=== PATIENT | female | born 2000 | race Caucasian/White ===

== ENCOUNTER 2023-06-06 10:29 | Emergency (ER) | payer OTHER, SELFPAY ==
[2023-06-06 10:36] VITALS: BP 140/93; PULSE 71; RESP 20; TEMP 36.9; O2SAT 98; BMI 32.6
--- NOTE | 2023-06-06 10:41 | NUTR.NU ---
Pain and facial swelling to left side of face. Pt states known broken molar to left bottom jaw for 7 months. Pt is currently on Augmentin prescribed by Dr. Muller, but swelling has gotten worse over past 3 days. Pt. states she is having difficulty finding a dentist that accepts her insurance. Pt was given list of Dentists in area at this time.
--- NOTE | 2023-06-06 10:47 | ED.DENTAL1 ---
HPI - Dental/Oral General Chief complaint: Dental/Oral Stated complaint: SWELLING TO FACE Time Seen by Provider: 06/06/23 10:41 Source: patient Mode of arrival: walk-in Limitations: no limitations History of Present Illness HPI Narrative: 23-year-old female presents for dental pain and swelling to her left lower jaw. It began a few days ago and she was started on Augmentin yesterday. No difficulty breathing or swallowing. She doesn't have a dentist. The pain is moderate and continuous. Related Data Home Medications Medication Instructions Recorded Confirmed amoxicillin 875 mg-potassium 1 tab PO BID 06/06/23 06/06/23 clavulanate 125 mg tablet Previous Rx's Medication Instructions Recorded clindamycin HCl 300 mg capsule 300 mg PO Q6H 10 days #40 caps 06/06/23 Allergies Allergy/AdvReac Type Severity Reaction Status Date / Time No Known Drug Allergies Allergy Verified 06/06/23 10:34 Review of Systems ROS Narrative A ten point review of systems is negative except as noted above. PFSH PFSH Social History Smoking status: Light tobacco smoker Exam Narrative Exam Narrative: Nurses note and vital signs reviewed and patient is not hypoxic. General: The patient appears well and in no apparent distress. Patient is resting comfortably on cart. Skin: Warm, dry, no pallor noted. There is no rash noted. Head: Normocephalic, atraumatic Eye: Normal conjunctiva, no drainage Ears, Nose, Mouth, and Throat: oral mucosa is moist. Nares patent. swelling is noted to the left jaw. No submental swelling. No swelling to the floor of her mouth. Dental caries is noted in the left lower dentition. No bleeding or pus present. She is handling her oral secretions well. Cardiovascular: Regular Rate and Rhythm Respiratory: Patient is in no distress, no accessory muscle use, lungs are clear to auscultation, no wheezing, rales or rhonchi Back: non-tender GI: Normal bowel sounds, no tenderness to palpation, no masses appreciated. No rebound, guarding, or rigidity noted. Musculoskeletal: The patient has no evidence of calf tenderness, no pitting edema, symmetrical pulses noted bilaterally Neurological: A&O x4, normal speech Psychiatric: Cooperative Constitutional Vital Signs, click to edit/add: Last Vital Signs Temp 98.5 F 06/06/23 10:36 Pulse 71 06/06/23 10:36 Resp 20 06/06/23 10:36 BP 140/93 H 06/06/23 10:36 Pulse Ox 98 06/06/23 10:36 Course Vital Signs Vital signs: Vital Signs Temperature 98.5 F 06/06/23 10:36 Pulse Rate 71 06/06/23 10:36 Respiratory Rate 20 06/06/23 10:36 Blood Pressure 140/93 H 06/06/23 10:36 Pulse Oximetry 98 06/06/23 10:36 Temperature 98.5 F 06/06/23 10:36 Pulse Rate 71 06/06/23 10:36 Respiratory Rate 20 06/06/23 10:36 Blood Pressure 140/93 H 06/06/23 10:36 Pulse Oximetry 98 06/06/23 10:36 MDM - Dental/Oral MDM Narrative Medical decision making narrative: she was given IM Ancef and prescribed clindamycin and was given a dental list. I've no clinical suspicion of Og angina. Treatment diagnosis and follow-up were discussed with the patient. Differential Diagnosis Differential diagnosis: Likely gingival abscess, dental caries, toothache and dental abscess Discharge Plan Discharge Chief Complaint: Dental/Oral Clinical Impression: Dental abscess Patient Disposition: Home, Self-Care Time of Disposition Decision: 10:46 Condition: Good Mode of Transportation: Private Vehicle Prescriptions / Home Meds: New clindamycin HCl 300 mg capsule 300 mg PO Q6H 10 Days Qty: 40 0RF No Action amoxicillin-pot clavulanate 875-125 mg tablet 1 tab PO BID Instructions: Dental Abscess (ED) Additional Instructions: follow up with dentistry. Discontinue Augmentin and start clindamycin today. Stand Alone Forms: Portal Instructions Referrals: Tarun Muller MD [Primary Care Provider] - 1 week
[2023-06-06] MEDS: CEFAZOLIN SODIUM 1,000 MG, WATER FOR INJECTION,STERILE 2.5 ML IM (10:57)
== END 2023-06-06 11:01 | disposition home or self-care (01) ==
PROVIDERS: Emergency Provider Emergency Medicine; PCP Family Medicine
DX: K04.7 Periapical abscess without sinus (principal); F17.210 Nicotine dependence, cigarettes, uncomplicated
CPT/HCPCS: 96372; 99284

== ENCOUNTER 2024-09-02 16:31 | Emergency (ER) | payer OTHER, SELFPAY ==
[2024-09-02 16:37] VITALS: BP 127/77; PULSE 79; TEMP 36.8; O2SAT 96; BMI 25.6
--- NOTE | 2024-09-02 16:53 | XR_ITS ---
The [address] [address] Patient Name: ROBBIE SNOW MRN: [id number] date: 2000 Sex: F Assigned Patient Location: ER Current Patient Location: ER Accession/Order Number: [id number] Exam Date: 09/02/2024 16:59 Report Date: 09/02/2024 17:15 At the request of: TAMICA PERES Procedure: XR chest 2V EXAM: XR chest 2V HISTORY: cough COMPARISON: None. TECHNIQUE: PA and lateral views of the chest FINDINGS: There is no focal airspace consolidation. The cardiomediastinal silhouette is not enlarged. No evidence of pleural effusion or pneumothorax are identified. No acute osseous abnormality. XR/XR chest 2V IMPRESSION: No acute cardiopulmonary process. Recommend follow up imaging if symptoms worsen or persist. Electronically authenticated by: ROBINSON UNLU Date: 09/02/2024 17:15
--- NOTE | 2024-09-02 17:01 | ED.GENADUL1 ---
HPI HPI - General Adult General Chief complaint: Nausea/Vomiting/Diarrhea Stated complaint: FLU LIKE SYMPTOMS Time Seen by Provider: 09/02/24 16:38 Source: patient Mode of arrival: walk-in Limitations: no limitations History of Present Illness HPI narrative: Patient is a 24-year-old female who presents to the emergency department for the evaluation of flulike illness that began yesterday. She reports cough, congestion, vomiting, body aches and chills. She has had no objective fevers. She has no concern for . Her son is also being evaluated for the same. She took DayQuil at 7 AM. She states today she feels more winded and short of breath. She has had no hemoptysis. Related Data Home Medications ?Medication ?Instructions ?Recorded ?Confirmed amoxicillin 875 mg-potassium 1 tab PO BID 06/06/23 06/06/23 clavulanate 125 mg tablet Previous Rx's ?Medication ?Instructions ?Recorded clindamycin HCl 300 mg capsule 300 mg PO Q6H 10 days #40 caps 06/06/23 ggasmdzmrvnsqse-zkzmhwetrkxbqhq-ZT 10 ml PO Q6H PRN cold symptoms 09/02/24 2 mg-30 mg-10 mg/5 mL oral syrup #200 mL (Bromfed DM) ondansetron 4 mg disintegrating 4 mg PO Q6H PRN nausea and 09/02/24 tablet vomiting #12 tabs Allergies Allergy/AdvReac Type Severity Reaction Status Date / Time No Known Drug Allergies Allergy Verified 09/02/24 17:42 Opioid HPI Opioid Management Most Recent Opioid Data: No Data to Display Review of Systems ROS Constitutional Reports: chills; Denies: fever Ears, nose, mouth, and throat Reports: nasal congestion Cardiovascular Denies: chest pain Respiratory Reports: shortness of breath and cough; Denies: coughing up blood Gastrointestinal Reports: nausea, vomiting and diarrhea Integumentary/Breast Denies: rash Neurological Denies: headache Hematologic/Lymphatic Denies: easy bruising or easy bleeding PFSH PFS Social History Smoking status: Light tobacco smoker Little interest or pleasure in doing things: not at all Feeling down, depressed, or hopeless: not at all Exam Narrative Exam Narrative: Gen.: Awake, alert, in no distress Head: Normocephalic, atraumatic ENT: Moist mucous membranes, bilateral TMs clear Respiratory: No respiratory distress, lungs clear bilaterally Cardio: Regular rate and rhythm Gastrointestinal: Abdomen is soft, nondistended and nontender to palpation Extremities: Moves extremities equally Psych: Normal mood and affect Neuro: No focal neuro deficit Skin: Warm, dry, intact Constitutional Vital Signs, click to edit/add: Last Vital Signs Temp 98.3 F 09/02/24 16:37 Pulse 79 09/02/24 16:37 Resp 16 09/02/24 16:37 BP 127/77 09/02/24 16:37 Pulse Ox 96 09/02/24 16:37 O2 Del Method Room Air 09/02/24 16:37 Course Vital Signs Vital signs: Vital Signs Temperature 98.3 F 09/02/24 16:37 Pulse Rate 79 09/02/24 16:37 Respiratory Rate 16 09/02/24 16:37 Blood Pressure 127/77 09/02/24 16:37 Pulse Oximetry 96 09/02/24 16:37 Oxygen Delivery Method Room Air 09/02/24 16:37 Temperature 98.3 F 09/02/24 16:37 Pulse Rate 79 09/02/24 16:37 Respiratory Rate 16 09/02/24 16:37 Blood Pressure 127/77 09/02/24 16:37 Pulse Oximetry 96 09/02/24 16:37 Oxygen Delivery Method Room Air 09/02/24 16:37 Medical Decision Making MDM Narrative Medical decision making narrative: Patient treated with Zofran in the ER, no further episodes of emesis. She tolerated a popsicle. Vital signs are unremarkable. Two-view chest x-ray is negative and respiratory swabs are also negative. She is given education and reassurance to push fluids for home. Zofran given for nausea and Bromfed-DM given for cough and congestion. Work note provided. Follow-up with PCP and return to the ER if symptoms change or worsen SUPERVISED APC VISIT, PHYSICIAN ATTESTATION: Based on the medical record the care appears appropriate. ? Medical Records Medical records reviewed: Yes I reviewed the patient's medical records Lab Data Lab results reviewed: Yes I reviewed the patient's lab results Labs: Lab Results 09/02/24 Range/Units 16:44 Influenza Type A Ag Negative Influenza Type B Ag Negative SARS-CoV-2 Ag (CV2AG) Negative (NEGATIVE) Imaging Data Chest x-ray: Attestation: I have reviewed the pertinent imaging results. Radiologist's impression: ITS Impressions Chest X-Ray 09/02/24 16:53 IMPRESSION: No acute cardiopulmonary process. Recommend follow up imaging if symptoms worsen or persist. Electronically authenticated by: ROBINSON VASQUEZ Date: 09/02/2024 17:15 Discharge Plan Discharge Chief Complaint: Nausea/Vomiting/Diarrhea Clinical Impression: Flu-like symptoms, Vomiting and diarrhea Patient Disposition: Home, Self-Care Time of Disposition Decision: 17:44 Condition: Good Prescriptions / Home Meds: New gajbqhynwhqmodv-obysjuiwg-LW [Bromfed DM] 2-30-10 mg/5 mL syrup 10 ml PO Q6H PRN (Reason: cold symptoms) Qty: 200 0RF ondansetron 4 mg tablet,disintegrating 4 mg PO Q6H PRN (Reason: nausea and vomiting) Qty: 12 0RF No Action amoxicillin-pot clavulanate 875-125 mg tablet 1 tab PO BID clindamycin HCl 300 mg capsule 300 mg PO Q6H 10 Days Qty: 40 0RF Print Language: Latvian Instructions: Acute Nausea and Vomiting (ED), Viral Syndrome (ED) Referrals: Tarun Muller MD [Primary Care Provider] - 1 week
[2024-09-02] MEDS: ONDANSETRON 4 MG RAPDIS TABLET SL (17:06)
--- OUTSIDE RECORDS SUMMARY | 2024-09-02 17:07 | XMS_ITS | CCD ---
Author Organization [facility] Care Team Providers Care Vanstone Machine Operator Name Role Phone MD Nasreen Muller Primary Care Provider [phone] DO Arslan Mckee Emergency Provider Nasreen Muller Primary Care Unavailable Caryn Causey Attending Unavailable Caryn Causey Admitting Unavailable Nasreen Muller Primary Care Unavailable Arslan Mckee Admitting Unavailable Arslan Mckee Attending Unavailable JUSTIN Mckenzie, DR DOWNEY Primary Care Unavailable JAZZMINE MCMANUS Consulting Unavailable JAZZMINE MCMANUS Admitting Unavailable JAZZMINE MCMANUS Attending Unavailable JUSTIN Mckenzie, DR DOWNEY Primary Care Unavailable MELANIE Mckenzie, CARYN Admitting Unavailable CARYN BENAVIDES Attending Unavailable JOSE L, DR NIKI Martinez Consulting Unavailable MELANIE Mckenzie, CARYN Consulting Unavailable JUSTIN Mckenzie, DR DOWNEY Primary Care Unavailable KERRY, DR SUE Cuevas Admitting Unavailbhavya PAYNE, DR SUE Cuevas Attending Unavailbhavya PAYNE, DR SUE Cuevas Consulting UnavailEsperanza Mckenzie, DR DOWNEY Primary Care Unavailable ISMAEL BUITRAGO Admitting Unavailable ISMAEL BUITRAGO Attending Unavailable ISMAEL BUITRAGO Consulting Unavailable JUSTIN Mckenzie, DR DOWNEY Primary Care Unavailable MELANIE Mckenzie, CARYN Admitting Unavailable MELANIE ., CARYN Attending Unavailable ЕКАТЕРИНА BURGOS Consulting Unavailable MELANIE ., CARYN Admitting Unavailable MELANIE Mckenzie, CARYN Attending Unavailable JUSTIN Mckenzie, DR DOWNEY Primary Care Unavailable MELANIE Mckenzie, CARYN Consulting Unavailable JUSTIN Mckenzie, DR DOWNEY Primary Care Unavailable KINGSTON ., DR NEWBERRY Admitting Unavailable KINGSTON ., DR NEWBERRY Attending Unavailable KINGSTON ., DR NEWBERRY Consulting Unavailable ALKA FOSTER Consulting Unavailable Nasreen Muller MD Primary Care Provider [phone] NASREEN MULLER M Referring Unavailable NASREEN MULLER M Primary Care Unavailable CHING DAMON Referring Unavailable NASREEN MULLER M Primary Care Unavailable REINA WISE Referring Unavailable ASPEN MULLERLAS M Primary Care Unavailable HIMANSHU BURGOS Referring Unavailable NASREEN MULLER M Primary Care Unavailable HIMANSHU BURGOS Attending Unavailable HIMANSHU BURGOS Referring Unavailable NASREEN MULLER M Primary Care Unavailable REINA WISE Admitting Unavailable REINA WISE Attending Unavailable NASREEN MULLER M Primary Care Unavailable CT LAMAS Attending Unavailable NASREEN MULLER M Primary Care Unavailable NASREEN MULLER M Primary Care Unavailable LALO HAINES Attending Unavailable Medications Current Medications Medication Drug Class(es) Dates Sig (Normalized) Sig (Original) [id number] 200 actuat albuterol 0.09 mg/actuat metered dose inhaler (2 sources) beta2-Adrenergic Agonist Start: 06-19-2023 take 2 puff(s) by inhalation every four hours as needed albuterol (VENTOLIN HFA) 90 mcg/actuation inhaler Inhale 2 puffs every 4 (four) hours as needed for shortness of breath. 0 06/19/2023 Active Ethinyl Estradiol / Ferrous fumarate / Norethindrone (1 source) Estrogen Start: 07-17-2023 take 1 tablet by mouth once daily in the morning 09/07, , 1 mg-20 mcg (21)/75 mg (7) per tablet Indications: Encounter for general counseling and advice on contraceptive management , Encounter for initial prescription of contraceptive pills TAKE 1 TABLET BY MOUTH EVERY DAY IN THE MORNING 28 tablet 2 07/17/2023 Active fluconazole 150 mg oral tablet (1 source) Azole Antifungal Start: 09-13-2023 End: 09-13-2023 take 1 tablet by mouth once fluconazole (DIFLUCAN) 150 mg tablet Take 1 tablet (150 mg total) by mouth once for 1 dose. 1 tablet 0 09/13/2023 09/13/2023 Active ibuprofen 800 mg oral tablet (1 source) Nonsteroidal Anti-inflammatory Drug Start: 09-02-2023 take 1 tablet by mouth every eight hours as needed for pain ibuprofen (MOTRIN) 800 mg tablet Take 1 tablet (800 mg total) by mouth every 8 (eight) hours as needed for pain. 30 tablet 0 09/02/2023 Active Completed/Discontinued Medications Medication Drug Class(es) Dates Sig (Normalized) Sig (Original) Budesonide / formoterol (1 source) Corticosteroid, beta2-Adrenergic Agonist End: 08-16-2023 take 2 puff(s) by inhalation in the morning budesonide-formoter oL (SYMBICORT) 160-4.5 mcg/actuation inhaler Indications: maintenance therapy for asthma Inhale 2 puffs in the morning and 2 puffs before bedtime. Indications: controller medication for asthma. 0 08/16/2023 Discontinued Problems Active Problems Problem Classification Problem Date Documented Date Episodic/Chronic Asthma (5 sources) Mild intermittent asthma; Translations: [Mild intermittent asthma, uncomplicated] Onset: 07-04-2017 08-13-2023 Chronic Disorders of teeth and jaw (6 sources) Arthralgia of right temporomandibular joint; Translations: [Other specified disorders of teeth and supporting structures] Onset: 06-25-2022 Episodic Inflammation; infection of eye (except that caused by tuberculosis or sexually transmitteddisease) (1 source) Unspecified acute conjunctivitis, right eye; Translations: [Unspecified acute conjunctivitis, right eye] Onset: 08-07-2024 Episodic Other ear and sense organ disorders (3 sources) Otalgia, right ear; Translations: [OTALGIA RIGHT EAR] Onset: 10-01-2022 Episodic Other female genital disorders (1 source) Other specified noninflammatory disorders of vagina; Translations: [Other specified noninflammatory disorders of vagina] Onset: 09-13-2023 Episodic Other screening for suspected conditions (not mental disorders or infectious disease) (1 source) Abnormal findings on diagnostic imaging of other specified body structures; Translations: [ABNORML FIND DX IMG OTH BODY STRUC] Onset: 03-15-2022 Chronic Unclassified (1 source) OT SPCF DIS/COND COMPL ; Translations: [OTH SPCF DIS/COND COMPL ] Onset: 08-15-2022 Unclassified (2 sources) COUGH, UNSPECIFIED; Translations: [COUGH, UNSPECIFIED] Onset: 06-11-2022 Unclassified (1 source) Eye Redness Onset: 08-07-2024 Unclassified (1 source) undesired fertility Onset: 09-02-2023 Past or Other Problems Problem Classification Problem Date Documented Date Episodic/Chronic Abdominal pain (5 sources) Unspecified abdominal pain; Translations: [Unspecified abdominal pain] Onset: 03-13-2022 Episodic Allergic reactions (2 sources) Eczema; Translations: [Dermatitis, unspecified] Onset: 07-12-2020 07-12-2020 Episodic Hemorrhage during ; abruptio placenta; placenta previa (4 sources) Antepartum hemorrhage, unspecified, second trimester; Translations: [ANTEPARTUM HEMORR UNS 2ND TRIMESTER] Onset: 08-19-2022 Episodic Mood disorders (2 sources) Mood disorders Onset: 12-10-2022 12-10-2022 Nonspecific chest pain (1 source) Chest pain, unspecified; Translations: [Chest pain, unspecified] Onset: 03-11-2022 Episodic Other aftercare (1 source) Other retirement (current) drug therapy; Translations: [OTH LONGTERM CURRENT DRUG THERAPY] Onset: 03-15-2022 Episodic Other complications of (2 sources) Nausea and vomiting; Translations: [Vomiting of , unspecified] Onset: 08-31-2022 Resolved: 10-26-2022 10-26-2022 Episodic Other nervous system disorders (1 source) Other acute postprocedural pain; Translations: [Other acute postprocedural pain] Onset: 09-02-2023 Episodic Other and delivery including normal (4 sources) Encounter for supervision of normal , unspecified, unspecified trimester; Translations: [ENC SUP NORMAL PREG UNS UNS TRI] Onset: 03-15-2022 Episodic Other upper respiratory infections (1 source) Acute upper respiratory infection, unspecified; Translations: [ACUTE UP RESPIRATORY INFECTION UNS] Onset: 06-11-2022 Episodic Residual codes; unclassified (1 source) 26 weeks gestation of ; Translations: [26 WEEKS GESTATION OF ] Onset: 08-23-2022 Episodic Residual codes; unclassified (1 source) 18 weeks gestation of ; Translations: [18 WEEKS GESTATION OF ] Onset: 08-15-2022 Episodic Screening and history of mental health and substance abuse codes (2 sources) H/O: psychiatric disorder; 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 This does not exclude the possibility of infection because results are dependent on adequate specimen collection. GONORRHOEAE DNA(PCR) Negative (qualifier value) Neisseria gonorrhoeae not detected by nucleic acid amplification. This does not exclude the possibility of infection because results are dependent on adequate specimen collection. Normal [facility] Comment on above: Performed By: #### C #### [facility] ([id number]) [facility], [address] [place] [address] VAGINITIS PANEL PCRon 2023 VAGINITIS PANEL PCR BACT. VAGINOSIS DNA Not detected (qualifier value) Qualitative results are reported based on detection and quantitation of targeted organism markers which include: Lactobacillus spp. (L. crispatus and L. jensenii), Gardnerella vaginalis, Atopobium vaginae, Bacterial Vaginosis Associated Bacteria-2 (BVAB-2) and Megasphaera-1 SHELLEY SPECIES DNA Detected (qualifier value) Shelley species result based on detection of one or more of the following species: C. albicans, C. tropicalis, C. parapsilosis or C. dubliniensis SHELLEY KRUSEI DNA Not detected (qualifier value) No Shelley krusei detected SHELLEY GLABRATA DNA Not detected (qualifier value) No Sehlley glabrata detected TRICHOMONAS VAG DNA Not detected (qualifier value) No Trichomonas vaginalis detected NOTE BD MAX Vaginal Panel has not been evaluated for patients under 18 years old. Results for these patients should be reviewed and assessed in accordance with clinical presentation to determine patient diagnosis. [facility] Comment on above: Performed By: #### V PPCR #### [facility] ([id number]) [address] [facility], [address] [place] [address] HCG ( test) Ql (U)o n 01-15-2024 Beta HCG ( test) Ql (U) Negative Normal NEG [facility] Comment on above: Performed By: #### 2 106-3 #### [facility] ([id number]) [address] [facility] [place] [address] Surgical Pathologyon 024 Surgical Pathology Normal [facility] Comment on above: Result Comment: [facility] [address] [place] [address] Surgical Pathology Consultation Patient Name:CRISTAL SNOW:2000 (Age: 23)Gender:FTaken:4Reported:09/09/2023hysician(s):Reina Wise M.D. ([phone])Copy To: Rec. #:[id number]: #[id number] Final Pathologic Diagnosis 1. Left fallopian tube, salpingectomy: Benign fallopian tube. Simple paratubal cysts. 2. Right fallopian tube, salpingectomy: Benign fallopian tube. Simple paratubal cyst. Report Electronically Signed Out cjb/09/09/2023lizette Bustamante MD Interpretation performed at [facility], [address] [place] [address], License number: [id number]. Clinical History Undesired fertility. Gross Description 1. Received in formalin labeled, DEY, left fallopian tube is a reddish-brown to raygoza-castillo fallopian tube with fragmented fimbria 6 x 0.6 x 0.6 cm. At the fimbria a thin-walled 1.1 cm cyst is identified that ais smooth lined and exudes a clear colorless fluid. The fallopian tube is serially sectioned and exhibits a pinpoint lumen. Pattern Puncher sections are submitted in cassettes A-B. (2, ss, [id number], m1) SM 2. Received in formalin labeled, EDY, right fallopian tube is a brown-castillo fallopian tube with fimbriated end 5 x 1 x 0.9 cm. The specimen is serially sectioned and exhibits a pinpoint lumen. Pattern Puncher sections are submitted in cassettes A-B. (2, ss, [id number], m1 7) [facility]/09/03/2023GR Specimen(s) Received 1: Left fallopian tube 2: Right fallopian tube Fee Codes(s): 1; 80332 2; 22051 CBC AND AUTO DIFFon 08-16-20 ABSOLUTE BASOPHIL 0.0 X10E9/L Normal 0.0-0.2 [facility] Comment on above: Performed By: #### C BCA #### [facility] ([id number]) [address], [address] [place] [address] ABSOLUTE NEUTROPHIL 5.4 X10E9/L Normal 1.5-6.6 [facility] Comment on above: Performed By: #### C BCA #### [facility] ([id number]) [address], [address] [place] [address] Basophils/100 WBC (Bld) 0.4 % Normal [facility] Comment on above: Performed By: #### C BCA #### [facility] ([id number]) [address], [address] [place] [address] Eosinophils (Bld) [#/Vol] 0.5 10*3/uL High 0.0-0.4 [facility] Comment on above: Performed By: #### C BCA #### [facility] ([id number]) [address], [address] [place] [address] Eosinophils/100 WBC (Bld) 5.7 % Normal [facility] Comment on above: Performed By: #### C BCA #### [facility] ([id number]) [address], [address] [place] [address] Erythrocyte distribution width (RBC) [Ratio] 14.6 % Normal 11.5-15.0 [facility] Comment on above: Performed By: #### C BCA #### [facility] ([id number]) [address], [address] [place] [address] Hematocrit (Bld) [Volume fraction] 42.0 % Normal 35-47 [facility] Comment on above: Performed By: #### C BCA #### [facility] ([id number]) [address], [address] [place] [address] Hemoglobin (Bld) [Mass/Vol] 14.2 g/dL Normal 11.7-15.5 [facility] Comment on above: Performed By: #### C BCA #### [facility] ([id number]) [address], [address] [place] [address] Lymphocytes (Bld) [#/Vol] 2.7 10*3/uL Normal 1.0-3.5 [facility] Comment on above: Performed By: #### C BCA #### [facility] ([id number]) [address], [address] [place] [address] Lymphocytes/100 WBC (Bld) 28.9 % Normal [facility] Comment on above: Performed By: #### C BCA #### [facility] ([id number]) [address], [address] [place] [address] MCH (RBC) [Entitic mass] 27.1 pg Normal 27-34 [facility] Comment on above: Performed By: #### C BCA #### [facility] ([id number]) [address], [address] [place] [address] MCHC (RBC) [Mass/Vol] 33.9 g/dL Normal 32-36 [facility] Comment on above: Performed By: #### C BCA #### [facility] ([id number]) [address], [address] [place] [address] MCV (RBC) [Entitic vol] 80 fL Normal 80-100 [facility] Comment on above: Performed By: #### C BCA #### [facility] ([id number]) [address], [address] [place] [address] Monocytes (Bld) [#/Vol] 0.6 10*3/uL Normal 0-0.9 [facility] Comment on above: Performed By: #### C BCA #### [facility] ([id number]) [address], [address] [place] [address] Monocytes/100 WBC (Bld) 6.5 % Normal [facility] Comment on above: Performed By: #### C BCA #### [facility] ([id number]) [address], [address] [place] [address] Neutrophils/100 WBC (Bld) 58.5 % Normal [facility] Comment on above: Performed By: #### C BCA #### [facility] ([id number]) [address], [address] [place] [address] Platelet mean volume (Bld) [Entitic vol] 8.9 fL Normal 7-12 [facility] Comment on above: Performed By: #### C BCA #### [facility] ([id number]) [address], [address] [place] [address] Platelets (Bld) [#/Vol] 358 10*3/uL Normal 150-450 [facility] Comment on above: Performed By: #### C BCA #### [facility] ([id number]) [address], [address] [place] [address] RBC COUNT 5.25 X10E12/L High 3.80-5.20 [facility] Comment on above: Performed By: #### C BCA #### [facility] ([id number]) [address], [address] [place] [address] WBC (Bld) [#/Vol] 9.3 10*3/uL Normal 4.0-11.0 [facility] Comment on above: Performed By: #### C BCA #### [facility] ([id number]) [address] [facility] [place] [address] CBC auto differentialon 07-20 Basophils (Bld) [#/Vol] 0.0 10*3/uL [facility] Basophils/100 WBC (Bld) 0.4 % [facility] Eosinophils (Bld) [#/Vol] 0.5 10*3/uL High [facility] Eosinophils/100 WBC (Bld) 5.7 % [facility] Erythrocyte distribution width (RBC) [Ratio] 14.6 % 11.5 - 15.0 % [facility] Hematocrit (Bld) [Volume fraction] 42.0 % 35 - 47 % [facility] Hemoglobin (Bld) [Mass/Vol] 14.2 g/dL 11.7 - 15.5 g/dL [facility] Interpretation and review of laboratory results Abnormal [facility] Lymphocytes (Bld) [#/Vol] 2.7 10*3/uL [facility] Lymphocytes/100 WBC (Bld) 28.9 % [facility] MCH (RBC) [Entitic mass] 27.1 pg 27 - 34 pg [facility] MCHC (RBC) [Mass/Vol] 33.9 g/dL 32 - 36 g/dL [facility] MCV (RBC) [Entitic vol] 80 fL 80 - 100 fL [facility] Monocytes (Bld) [#/Vol] 0.6 10*3/uL [facility] Monocytes/100 WBC (Bld) 6.5 % [facility] Neutrophils (Bld) [#/Vol] 5.4 10*3/uL [facility] Neutrophils/100 WBC (Bld) 58.5 % [facility] Platelet mean volume (Bld) [Entitic vol] 8.9 fL 7 - 12 fL [facility] Platelets (Bld) [#/Vol] 358 10*3/uL [facility] RBC (Bld) [#/Vol] 5.25 10*6/uL High [facility] WBC corrected for nucl RBC Auto (Bld) [#/Vol] 9.3 [facility] XR CHEST 2 VWSon 08-16-2023 XR CHEST 2 VWS XR CHEST 2 VWS HISTORY: A 23-year-old female with the history of asthma. Preoperative examination. EXAM/TECHNIQUE: CHEST: PA and lateral views COMPARISON: Comparison is made with prior chest examination of 06/04/2020. FINDINGS: Both lungs and costophrenic angles are clear. There is no evidence of pulmonary infiltrate or acute pulmonary pathology. The cardiac silhouette is within normal limits. The trachea is in midline. The mediastinum is otherwise unremarkable. The hemidiaphragms are normal in position. The bony rib cage is intact. IMPRESSION: No evidence of pulmonary infiltrate, acute pulmonary pathology or significant interval change. Finalized by Len Archuleta MD on 08/16/2023 10:32 AM Normal [facility] XR Chest PA and Lateralon HISTORY: A 23-year-old female with the history of asthma. Preoperative examination. EXAM/TECHNIQUE: CHEST: PA and lateral views COMPARISON: Comparison is made with prior chest examination of 06/04/2020. FINDINGS: Both lungs and costophrenic angles are clear. There is no evidence of pulmonary infiltrate or acute pulmonary pathology. The cardiac silhouette is within normal limits. The trachea is in midline. The mediastinum is otherwise unremarkable. The hemidiaphragms are normal in position. The bony rib cage is intact. IMPRESSION: No evidence of pulmonary infiltrate, acute pulmonary pathology or significant interval change. Finalized by Len Archuleta MD on 08/16/2023 10:32 AM [facility] Len Archuleta MD - 08/16/2023 HISTORY: A 23-year-old female with the history of asthma. Preoperative examination. EXAM/TECHNIQUE: CHEST: PA and lateral views COMPARISON: Comparison is made with prior chest examination of 06/04/2020. FINDINGS: Both lungs and costophrenic angles are clear. There is no evidence of pulmonary infiltrate or acute pulmonary pathology. The cardiac silhouette is within normal limits. The trachea is in midline. The mediastinum is otherwise unremarkable. The hemidiaphragms are normal in position. The bony rib cage is intact. IMPRESSION: No evidence of pulmonary infiltrate, acute pulmonary pathology or significant interval change. Finalized by Len Archuleta MD on 08/16/2023 10:32 AM [facility] [employer] Radiology Study observation (narrative) [facility] Chest PA and LateralOrder ed By: Len Archuleta on 08-16-2023 [employer] Work Phone: STREPT SCREENon 12-03-2022 STREP SCREEN A Negative Normal NEGATIVE [facility] Comment on above: Performed By: #### S SCRN #### [facility] [address] [place] [address] Dr. Naima Echevarria CULTURE URINEon 08-19-2022 CULTURE URINE Culture Observations: LIGHT GROWTH OF MIXED GENITAL LARISSA. NO POTENTIAL PATHOGENS SEEN. Normal [facility] Comment on above: Performed By: #### P REGQNT #### [facility] [address] [place] [address] Dr. Naima Echevarria UA (CLEAN/CATCH) RESPIRATORY MANAGER/MICRO I F IND.on 08-19-2022 Bilirubin Ql (U) Negative Normal NEGATIVE [facility] Comment on above: Performed By: #### U ACSALONSO ICRO #### [facility] [address] [place] [address] Dr. Naima Echevarria Clarity (U) CLEAR Normal CLEAR [facility] Comment on above: Performed By: #### U ACSALONSO UMICRO #### [facility] [address] [place] [address] Dr. Naima Echevarria Color (U) LT. YELLOW Normal YELLOW [facility] Comment on above: Performed By: #### U ACSALONSO UMICRO #### [facility] [address] [place] [address] Dr. Naima Echevarria Glucose Ql (U) Negative Normal NEGATIVE [facility] Comment on above: Performed By: #### U ACSIND UMICRO #### [facility] [address] [place] [address] Dr. Naima Echevarria Hemoglobin Ql (U) TRACE-INTACT Abnormal NEGATIVE [facility] Comment on above: Performed By: #### U ACSIND, UMICRO #### [facility] [address] [address] [address] Naima Echevarria Ketones Ql (U) Negative Normal NEGATIVE [facility] Comment on above: Performed By: #### U ACSIND, UMICRO #### [facility] [address] [address] [address] Naima Echevarria LEUKOCYTES SMALL Abnormal NEGATIVE [facility] Comment on above: Performed By: #### U ACSIND, UMICRO #### [facility] [address] [address] [address] Naima Echevarria Nitrite Ql (U) Negative Normal NEGATIVE [facility] Comment on above: Performed By: #### U ACSIND, UMICRO #### [facility] [address] [place] [address] Dr. Naima Echevarria pH (U) 8.5 [pH] Normal 5-9 [facility] Comment on above: Performed By: #### U ACSIND, UMICRO #### [facility] [address] [place] [address] Dr. Naima Echevarria SPEC GRAVITY 1.015 Normal 1.005-<=1.[address] [facility] Comment on above: Performed By: #### U ACSIND, UMICRO #### [facility] [address] [place] [address] Dr. Naima Echevarria UA PROTEIN Negative Normal NEGATIVE/ TRACE [facility] Comment on above: Performed By: #### U ACSIND, UMICRO #### [facility] [address] [address] [address] Naima Echevarria UR MICRO IND INDICATED Normal [facility] [facility] Comment on above: Performed By: #### U ACSIND, UMICRO #### [facility] [address] [place] [address] Dr. Naima Echevarria Urobilinogen Qn (U) 1.0 {Stiven'U}/dL Normal 0.2 - 1. 0 [facility] Comment on above: Performed By: #### U ACSIND, UMICRO #### [facility] [address] [address] [address] Naima Echevarria URINE MICROSCOPIC ONLYon BACTERIA TRACE Abnormal NONE SEEN The [facility] Comment on above: Performed By: #### U ACSIND, UMICRO #### [facility] [address] [address] [address] Naima Echevarria Bacteria identified Cx Nom (U) INDICATED Normal The [facility] Comment on above: Performed By: #### U ACSIND, UMICRO #### [facility] [address] [address] [address] Naima Echevarria CAST NONE SEEN Normal NONE SEEN The [facility] Comment on above: Performed By: #### U ACSALONSO, UMICRO #### [facility] [address] [place] [address] Dr. Naima Echevarria Crystals LM Nom (Urine sed) NONE SEEN Normal NONE SEEN The [facility] Comment on above: Performed By: #### U ACSALONSO, UMICRO #### [facility] [address] [place] [address] Dr. Naima Echevarria Epithelial cells LM Ql (Urine sed) FEW Abnormal NONE SEEN /RARE The [facility] Comment on above: Performed By: #### U ACSALONSO UMICRO #### [facility] [address] [place] [address] Dr. Naima Echevarria MUCOUS TRACE Abnormal NONE SEEN The [facility] Comment on above: Performed By: #### U ACSALONSO UMICRO #### [facility] [address] [place] [address] Dr. Naima Echevarria RBC 5-10 Abnormal 0-[address] [facility] Comment on above: Performed By: #### U ACSALONSO UMICRO #### [facility] [address] [place] [address] Dr. Naima Echevarria WBC 5-10 Abnormal NONE SEEN The [facility] Comment on above: Performed By: #### U ACSALONSO UMICRO #### [facility] [address] [place] [address] Dr. Naima Echevarria US PREG CERVICAL LENGTHon US PREG CERVICAL LENGTH EXAM: US PREG CERVICAL LENGTH, US PREG PLACENTA CLINICAL: patient with bleeding for one day, no pain. TECHNIQUE: Transabdominal and transvaginal obstetrical ultrasound was performed. FINDINGS: Comparison made to study 03/13/2022. FETUS AND PLACENTA: There is a single living intrauterine fetus in variable position with heart rate of 138 beats per minute. The placenta is posterior and fundal in location, without previa. Placental edge is 8.1 cm to the internal cervical os. Placental is normal in appearance without intraplacental or retroplacental fluid. OTHER: Cervix is closed. Cervical length is 6.5 cm by transvaginal measurement. Amniotic fluid volume is grossly normal by visual inspection. IMPRESSION: 1. Single intrauterine fetus in variable position with heart rate of 138 beats per minute. 2. Posterior and fundal placenta without previa. Placental edge is 8.1 cm to the internal cervical os. Normal appearance of placenta without intraplacental or retroplacental fluid/hemorrhage. Recommend followup imaging if symptoms worsen or persist. 3. Closed cervix with cervical length of 6.5 cm by transvaginal measurement. Electronically authenticated by: ALKA FOSTER Date: 2022-08-19 15:42 Normal [address] [facility] HCG-BETA SUBUNIT QUANTon hCG,Beta Subunit,Qnt,Serum 158 mIU/mL Normal [facility] Comment on above: Result Comment: Fema le (Non-) 0 - 5 (Postmenopausal) 0 - 8 . Female () Weeks of Gestation 3 6 - 71 4 10 - 750 5 497 - 5138 6 158 - 51592 7 [phone] 8 90524 -[phone] 9 19636 -952273 10 48557 -743805 12 75308 -066785 14 25812 - 59580 15 03395 - 85013 16 4320 - 96991 17 1184 - 08009 18 1655 - 65692 Ion ECLIA methodology Performed By: #### H CGSUB #### [facility] [address] [place] [address] Dr. Naima Echevarria CULTURE URINEon 03-13-2022 CULTURE URINE Culture Observations: LIGHT GROWTH OF MIXED GENITAL LARISSA. NO POTENTIAL PATHOGENS SEEN. Normal [facility] Comment on above: Performed By: #### U RCX #### [facility] [address] [address] [address] Naima Echevarria ER URINE PROFILEon 2 Bilirubin Ql (U) Negative Normal NEGATIVE The [facility] Comment on above: Performed By: #### P REGU, ERUR, UMICRO #### [facility] [address] [address] [address] Naima Echevarria Clarity (U) CLEAR Normal CLEAR The [facility] Comment on above: Performed By: #### P REGU, ERUR, UMICRO #### [facility] [address] [address] [address] Naima Echevarria Color (U) YELLOW Normal YELLOW The [facility] Comment on above: Performed By: #### P REGU, ERUR, UMICRO #### [facility] [address] [address] [address] Naima FORREST A micrscopic examination will be performed if indicated. Normal The [facility] Comment on above: Performed By: #### P REGU, ERUR, UMICRO #### [facility] [address] [address] [address] Naima Echevarria Glucose Ql (U) Negative Normal NEGATIVE The [facility] Comment on above: Performed By: #### P REGU, ERUR, UMICRO #### [facility] [address] [address] [address] Naima Echevarria Hemoglobin Ql (U) Negative Normal NEGATIVE [facility] Comment on above: Performed By: #### P REGU, ERUR, UMICRO #### [facility] [address] [address] [address] Naima Echevarria Ketones Ql (U) Negative Normal NEGATIVE The [facility] Comment on above: Performed By: #### P REGU, ERUR, UMICRO #### [facility] [address] [address] [address] Naima Echevarria LEUKOCYTES TRACE Abnormal NEGATIVE The [facility] Comment on above: Performed By: #### P REGU, ERUR, UMICRO #### [facility] [address] [address] [address] Naima Echevarria Nitrite Ql (U) Negative Normal NEGATIVE The [facility] Comment on above: Performed By: #### DAFNE HYATT UMICRO #### [facility] [address] [address] [address] Naima Echevarria pH (U) 6.5 [pH] Normal 5-9 [facility] Comment on above: Performed By: #### DAFNE HYATT UMICRO #### [facility] [address] [address] [address] Naima Echevarria SPEC GRAVITY 1.025 Normal 1.005-<=1.[address] [facility] Comment on above: Performed By: #### DAFNE HYATT UMICRO #### [facility] [address] [address] [address] Naima Echevarria UA PROTEIN Negative Normal NEGATIVE/ TRACE The [facility] Comment on above: Performed By: #### DAFNE HYATT UMICRO #### [facility] [address] [address] [address] Naima Echevarria UR MICRO IND INDICATED Normal The [facility] Comment on above: Performed By: #### DAFNE HYATT UMICRO #### [facility] [address] [address] [address] Naima Echevarria Urobilinogen Qn (U) 0.2 {Stiven'U}/dL Normal 0.2 - 1. 0 [facility] Comment on above: Performed By: #### DAFNE HYATT UMICRO #### [facility] [address] [address] [address] Naima Echevarria HCG,Quantitativeon 2 HCG,Quantitative 55.74 m[iU]/mL Normal The [facility] Comment on above: Result Comment: Appr oximate Approximate hCG Gestational Age Range (mIU/ml) (weeks) 0.2-1 5-50 1-2 50-500 2-3 100-5,000 3-4 500-10,000 4-5 1,000-50,000 5-6 10,000-100,000 6-8 15,000-200,000 8-12 10,000-100,000 PERFORMED BY: [place] [address] PATHOLOGIST QUALITY IMPROVEMENT SPECIALIST REBEL SMALLWOOD M.D. Performed By: #### H CGQNT #### [place] [address] [place] PREG QUANT HCGon 03-13-2022 HCG QUANT 55 mIU/mL Normal The [facility] Comment on above: Performed By: #### P REGQNT #### [facility] [address] [place] [address] Dr. Naima Echevarria HCG RANGE SEE BELOW Normal The [facility] Comment on above: Result Comment: 5-50 0.2-1 WEEK 50-500 1-2 WEEKS 100-5,000 2-3 WEEKS 500-10,000 3-4 WEEKS 1,000-50,000 4-5 WEEKS 10,000-100,000 5-6 WEEKS 15,000-200,000 6-8 WEEKS 10,000-100,000 2-3 MONTHS Performed By: #### P REGQNT #### [facility] [address] [place] [address] Dr. Naima Echevarria Result Comment: TEST PERFORMED AT: [facility] [address] [place] [address] URon 03-13-2022 , QUAL Positive Abnormal NEGATIVE The [facility] Comment on above: Performed By: #### P REGQNT #### [facility] [address] [address] [address] Naima Echevarria URINE MICROSCOPIC ONLYon BACTERIA TRACE Abnormal NONE SEEN The [facility] Comment on above: Performed By: #### P REGQNT #### [facility] [address] [place] [address] Dr. Naima Echevarria Bacteria identified Cx Nom (U) INDICATED Normal The [facility] Comment on above: Performed By: #### P REGQNT #### [facility] [address] [place] [address] Dr. Naima Echevarria CAST NONE SEEN Normal NONE SEEN The [facility] Comment on above: Performed By: #### P REGQNT #### [facility] [address] [address] [address] Naima Echevarria Crystals LM Nom (Urine sed) NONE SEEN Normal NONE SEEN The [facility] Comment on above: Performed By: #### P REGQNT #### [facility] [address] [place] [address] Dr. Naima Echevarria Epithelial cells LM Ql (Urine sed) FEW Abnormal NONE SEEN /RARE The [facility] Comment on above: Performed By: #### P REGQNT #### [facility] [address] [place] [address] Dr. Naima Echevarria MUCOUS TRACE Abnormal NONE SEEN The [facility] Comment on above: Performed By: #### P REGQNT #### [facility] [address] [place] [address] Dr. Naima Echevarria RBC 0-2 Normal 0-[address] [facility] Comment on above: Performed By: #### P REGQNT #### [facility] [address] [place] [address] Dr. Naima Echevarria WBC 5-10 Abnormal NONE SEEN The [facility] Comment on above: Performed By: #### P REGQNT #### [facility] [address] [place] [address] Dr. Naima Echevarria US PREG TVon 03-13-2022 US PREG TV EXAMINATION: US PREG TV HISTORY: Pain COMPARISON: No relevant comparison available. FINDINGS: GESTATIONAL SAC: Absent. POLE: Absent. YOLK SAC: Absent. CARDIAC: Absent. UTERUS: Homogeneous endometrium 16 mm in thickness. OVARIES: Right: Corpus lutein cyst. Left: Normal. CERVIX: 4.1 cm in length and closed. CUL-DE-SAC: Normal. OTHER: Slightly lobular isoechoic 15 x 9 x 8 mm soft tissue structure within right adnexa adjacent the right ovary. AGE BY LMP: 7 weeks, 0 days DEX BY LMP: 10/30/2022 AGE BY US CRL: Not applicable DEX BY US CRL: IMPRESSION: 1. Thickened endometrium with no appreciable intrauterine ; a very early cannot be excluded. 2. Questionable small isoechoic structure adjacent the right ovary; nonspecific. Follow-up ultrasound evaluation should be based on correlation with beta hCG levels. Electronically authenticated by: NIKI DOMINGO Date: 2022-03-13 10:05 Normal [facility] ECG 12 lead ECGon 03-11-2022 ECG 12 lead ECG [facility] Main [address] [address] Electrocardiograph Report Signed Patient: Cristal Snow MR#: [id number] : 2000 Acct:[id number] Age/Sex: 21 / F ADM Date: 03/11/22 Loc: ER Room: Type: [facility] ER Attending Dr: Ordering Provider: Arslan Mckee DO Date of Service: 03/11/22 ECG/ECG 12 lead ECG: Syncope Copies to: Test Reason : Blood Pressure : 139/080 mmHG Vent. Rate : 103 BPM Atrial Rate : 103 BPM P-R Int : 156 ms QRS Dur : 108 ms QT Int : 342 ms P-R-T Axes : 058 057 032 degrees QTc Int : 448 ms Sinus tachycardia Possible Left atrial enlargement Incomplete right bundle branch block Borderline ECG No previous ECGs available Confirmed by TOM SMITH MD ([id number]) on 03/11/2022 7:30:26 PM Referred By: Electronically Signed By:TOM SMITH MD Transcribed By: MUS Signed By Tom Smith MD 03/11/221929 [facility] Vital Signs Date Time Vital Sign Value Performing Clinician Faci lity 08-16-2023 09:06-0500 Body height 157.5 cm [facility] 1 [facility] 08-16-2023 09:06-0500 Body mass index (BMI) [Ratio] 32.37 kg/m2 [facility] 1 [facility] 08-16-2023 09:06-0500 Body weight 80.29 kg [facility] 1 [facility] 03-11-2022 16:01-0400 Body height 172.72 cm MD Nasreen Muller Work Phone: [facility] 03-11-2022 16:01-0400 Body temperature 98 [degF] MD Nasreen Muller Work Phone: [facility] 03-11-2022 16:01-0400 Body weight 121.1 kg MD Nasreen Muller Work Phone: [facility] 03-11-2022 16:01-0400 Diastolic blood pressure 78 mm[Hg] MD Nasreen Muller Work Phone: [facility] 03-11-2022 16:01-0400 Heart rate 103 /min MD Nasreen Muller Work Phone: [facility] 03-11-2022 16:01-0400 Respiratory rate 20 /min MD Nasreen Muller Work Phone: [facility] 03-11-2022 16:01-0400 SaO2% (BldA) [Mass fraction] 97 % MD Nasreen Muller Work Phone: [facility] 03-11-2022 16:01-0400 Systolic blood pressure 127 mm[Hg] MD Nasreen Muller Work Phone: [facility] Encounters Encounter Date Encounter Type Care Provider Facility Start: 08-07-2024 End: 08-07-2024 Emergency department patient visit [facility] Start: 09-13-2023 Orders Only Ching jay ASSISTANT PROGRAM DIRECTOR-CNM Work Phone: [facility] Start: 09-13-2023 End: 09-13-2023 ambulatory CHING DAMON [facility] Start: 09-12-2023 End: 09-12-2023 ambulatory NASREEN [facility] Start: 09-02-2023 End: 09-02-2023 Evaluation and management of inpatient CT LAMAS [facility] Start: 09-02-2023 End: 09-02-2023 Evaluation and management of inpatient [facility] Start: 08-16-2023 End: 08-16-2023 ambulatory HIMANSHU BURGOS [facility] Start: 08-16-2023 Encounter for other preprocedural examination [facility] Start: 08-16-2023 End: 08-16-2023 Patient encounter procedure [facility] Pre-Admission Testing 1 [facility] - Pre Admit Comment on above: Preop examination (P rimary Dx); Mild intermittent asthma without complication Start: 08-16-2023 End: 08-16-2023 Preprocedural examination done [facility] 1 [facility] Start: 12-03-2022 End: 12-03-[address] NASREEN MULLER . Facility:[facility] Start: 10-01-2022 End: 10-02-[address] NASREEN MULLER . Facility:[facility] Start: 08-19-2022 End: 08-19-[address] NASREEN MULLER . Facility:[facility] Start: 06-25-2022 End: 06-25-[address] NASREEN MULLER . Facility:[facility] Start: 06-10-2022 End: 06-10-[address] NASREEN MULLER . Facility:[facility] Start: 03-15-2022 End: 03-16-2022 ambulatory CARYN CAUSEY . Facility:[facility] Start: 03-13-2022 End: 03-13-2022 ambulatory Nasreen Muller Facility:[facility] Start: 03-13-2022 End: 03-13-[address] NASREEN MULLER . Facility: Start: 03-11-2022 End: 03-11-2022 Emergency department patient visit Nasreen Muller Facility:[facility] Start: 03-11-2022 End: 03-11-2022 Emergency department patient visit MD Naseren Muller Work Phone: [facility] Procedures Date Procedure Procedure Detail Performing Clinician Start: 01-07-2023 Adult depression scr eening assessment [facility] 1 Start: 08-31-2022 Microscopic observat ion [Identifier] in Cervix by Cyto stain [facility] 1 Plan of Treatment Date Care Activity Detail Author Start: 09-27-2032 DTaP,Tdap and Td Vaccines (8 - Td or Tdap) DTaP,Tdap and Td Vaccines (8 - Td or Tdap) [facility] Start: 08-31-2025 Screening for malign ant neoplasm of cervix Pap Smear [facility] Start: 09-12-2024 Adult BMI Screening Adult BMI Screen ing [facility] Start: 09-12-2024 Tobacco Screening Tobacco Screening [facility] Start: 08-16-2024 Adult BMI Screening Adult BMI Screen ing [facility] Start: 08-16-2024 Tobacco Screening Tobacco Screening [facility] Start: 01-08-2024 Depression Screening Depression Scre ening [facility] Start: 10-14-2023 End: 10-14-2023 Patient encounter procedure 10/14/2023 9:00 AM EST Office Visit [facility] [address] [place] [id number] [facility] Start: 09-02-2023 End: 09-02-2023 Admission to same day surgery center 09/02/2023 12:30 PM EST - 09/02/2023 2:00 PM EST Surgery [facility] - Surgery [address] [place] [id number] Reina Wise MD [address] [place] [address] LAPAROSCOPIC TUBAL LIGATION [80289 (CPT )] [facility] - Surgery Comment on above: LAPAROSCOPIC TUBAL L IGATION [41772 (CPT )] Start: 09-02-2023 End: 09-02-2023 Laparoscopy w/plmt occlusion device oviducts LAPAROSCOPIC TUBAL LIGATION undesired fertility 09/02/2023 12:30 PM EST [facility] Start: 09-02-2023 End: 09-02-2023 Laparoscopy w/rmvl adnexal structures LAPAROSCOPIC SALPINGECTOMY undesired fertility 09/02/2023 12:30 PM EST [facility] Start: 09-02-2023 Subsequent hospital visit by physician 09/02/2023 12:30 PM EST Hospital Encounter [facility] - Surgery [address] [place] [id number] Reina Wise MD [address] [place] [address] [facility] Start: 04-19-2023 Influenza vaccination Influenza Vacc ine [facility] Start: 2016 Adult BMI Follow Up Plan Adult BMI Follow Up Plan [facility] Patient referral [facility] Work Phone: Immunizations Immunization Date Immunization Notes Care Provider Fa cility 09-27-2022 tetanus toxoid, redu shawnee diphtheria toxoid, and acellular pertussis vaccine, adsorbed [facility] 1 [facility] NEGATED: Highlighted row has not occurred!09-12-2017 measles, mumps and rubella virus vaccine [facility] 1 [facility] Comment on above: Deferred: - IMMUNITY NEGATED: Highlighted row has not occurred!09-12-2017 tetanus toxoid, reduced diphtheria toxoid, and acellular pertussis vaccine, adsorbed [facility] 1 [facility] Comment on above: Deferred: - PT STATE S I'M AFRAID OF NEEDLES DESPITE EDUCATION REGARDING DTAP NEGATED: Highlighted row has not occurred!09-12-2017 varicella virus vaccine [address] Payers Date Payer Category Payer Unknown [id number] 2022 Self-pay 2020 Medicaid [employer] [id number] 2020-Present [phone] [place] [id number] 2000 Unknown [id number] [id number] 2000 Unknown [id number] 2.16.840.1.403656.3.579.2.593 1998 Unknown [id number] 2.16.840.1.225584.3.579.2.593 1998 Unknown [id number] 2.16.840.1.866591.3.579.2.593 1998 Unknown [id number] 2.16.840.1.004383.3.579.2.593 1998 Unknown [id number] 2.16.840.1.416145.3.579.2.593 1998 Unknown [id number] 2.16.840.1.655806.3.579.2.593 1998 Unknown [id number] 2.16.840.1.373794.3.579.2.1286 1998 Unknown [id number] 2.16.840.1.461709.3.579.2.1286 1998 Unknown [id number] 2.16.840.1.842038.3.579.2.1286 1998 Unknown [id number] 2.16.840.1.692480.3.579.2.128 1998 Unknown [id number] 2.16840.1.782588.3.579.2.128 1998 Unknown [id number] 2.16.840.1.948148.3.579.2.1286 1998 Unknown [id number] 2.16.840.1.753556.3.579.2.128 1998 Unknown [id number] 2.16.840.1.919284.3.579.2.1286 1998 Unknown [id number] 2.16840.1.932203.3.579.2.1286 1961 Medicaid [id number] Unknown [id number] 2.16.840.1.167380.3.579.2.531 Unknown [id number] 2.16840.1.393565.3.579.2.531 Social History Date Type Detail Facility Start: 03-11-2022 Tobacco smoking stat [facility] Smoker (finding) [facility] Start: 2000 Sex Assigned At Female F [facility] Start: 08-16-2023 Tobacco smoking stat [facility] Ex-smoker [facility] Start: 08-16-2023 Tobacco use and exposure Smokeless tobacco non-user [facility] Start: 08-16-2023 End: 09-12-2023 Alcohol intake Current drinker of alcohol (finding) [facility] Start: 08-31-2020 End: 08-16-2023 Alcohol intake [facility] Start: 08-31-2020 End: 08-16-2023 Tobacco use panel [facility] How hard is it for y ou to pay for the very basics like food, housing, medical care, and heating Somewhat hard [facility] Adolescent depressio n screening assessment 2 [facility] The thought of hany topete myself has occurred to me Never [facility] Start: 2000 Sex Assigned At Not on file P [facility] Instructions 08-16-2023 Patient Instructions Note Date & Type Note Facility 08-16-2023 Instructions Shey Delacruz RN - 08/16/2023 9:00 AM EST Preoperative Education Checklist- General Surgery date: 09/02/23 Surgery time: 1230p Arrival time: 1030a 1. Bring a photo ID and your insurance card with you the day of surgery. You will check in at the main lobby of the [facility]- registration desk is straight ahead as soon as you walk in. Tell them you are here for surgery. 2. If you have a Living Will/Durable Power of Internet Sales Representative for Health Care that is not on file here, please bring a copy the day of surgery. 3. Please shower/bathe the night before surgery with the provided soap or wipes. Do not shower the morning of surgery- you will do use wipes when you arrive here at the hospital before getting into your surgical gown. Do not shave the area of your procedure for 2 days prior to your surgery. 4. NO powder, lotion, perfume/cologne, aftershave, make-up, deodorant, or hair products after you have bathed. 5. NO nail gibraltarian/acrylic on at least one finger. If you are having a hand, wrist or foot surgery then all nail gibraltarian and artificial/acrylic nails must be removed from that hand or foot. 6. Avoid ALL Aspirin and non-steroidal anti-inflammatory drugs and certain vitamins (Ibuprofen, Advil, Aleve, Excedrin, Meloxicam, Celebrex, fish/krill oil, etc.) for 7 days prior to surgery as instructed by your surgeon and/or your prescribing doctor. Tylenol IS ALLOWED. If you are on Ticlid, Xarelto, Eliquis, Pradaxa, Plavix or Coumadin, please check with your prescribing doctor for instructions for when to stop them. 7. If you use an inhaler, continue to use it routinely. 8. Nothing to eat or drink (not even water, gum, mints, or hard candy!) AFTER midnight prior to your surgery. 9. Take only medications that you are instructed to on the morning of surgery with a TINY SIP OF WATER. 10. Choose a responsible adult that will be able to drive you home when you are discharged from your hospital stay for your surgery and can stay with you in your home for 24 hours after your procedure. You must NOT drive any vehicle or operate any machinery for 24 hours after surgery. 11. When you dress for your appointment, please wear loose fitting clothing that is appropriate to accommodate your surgical area procedure. BRING WITH YOU ANY DEVICES YOU MAY NEED: ANABELLA hose, ice machine, sling/swath, brace or special shoe, oversized zip-up or button up shirt, CPAP machine if staying overnight. 12. Do NOT wear jewelry, watches, or any piercings or metal for surgery- leave these valuables and money at home. 13. Do NOT wear contact lenses for surgery- glasses are okay if needed. 14. The anesthesiologist will talk with you the day of surgery and will ask you to sign a Consent Form. 15. Refrain from smoking or any type of tobacco use for at least 8 hours and marijuana for 24 hours prior to arrival for your surgery. 16. If a GREEN BLOOD band is given to you, please bring it with you for the day of surgery. 17. Notify your surgeon if you develop any illness before your surgery. 18. If you are staying overnight, please DO NOT BRING your home medications with you. 19. If you have any questions prior to surgery, please call the [facility] office at [phone], Mon.-Fri. 7 a.m.-3 p.m. Leave a voicemail if needed. Pre-Surgery Instructions: Medication Instructions albuterol (VENTOLIN HFA) 90 mcg/actuation inhaler Take morning of procedure 09/07, 28, 1 mg-20 mcg (21)/75 mg (7) per tablet Stop taking 0 days prior to procedure How to Avoid an Infection after Your Surgery Your doctor will give you specific instructions, but remember: -ALWAYS wash hands before caring for your incision. -No picking, scratching, or rubbing your incision. -No creams, lotion, powder, rubbing alcohol or hydrogen peroxide on the incision (can harm the tissue and slow healing). -Your doctor will give you specific instructions for what type of dressing you will need and how often it will need changed for infection purposes. -No tight clothing on incision. -Do not allow anyone to touch your incision unless they are cleaning, checking, or redressing it (be sure they wash their hands first). -No contact of your incision with pets; avoid sleeping with pets. -Take full course of antibiotic if prescribed for you after surgery- do not stop unless directed to by your physician. You may also be given an antibiotic prior to your surgery to help prevent surgical site infections. -Eat a healthy and varied diet including proteins, fruits, and vegetables to help promote wound healing and keep blood sugars under control if you are diabetic. -Smoking slows the healing process by decreasing the amount of oxygen in your blood that is needed for tissue healing. Try to avoid or stop smoking if possible. LOOK at your incision each morning and each night to check the progress of healing. Some soreness, numbness, itching and/or mild bruising around the incision is normal. Call your doctor if you notice any of the following: -Increased redness or hardening around the incision area. -Increased pain at the incision site. -Incision feels hot to the touch. -Swelling or pulling apart of the incision edges. -Yellow or green drainage or foul odor coming from the incision. -Bleeding from the incision (apply pressure as needed). -Fever higher than 101 degrees Fahrenheit for more than 4 hours. SHOWERING: Your doctor will give you specific instructions, but remember: -Be careful getting into and out of the shower. -Showers should be quick (5 minutes or less). -Use a clean washcloth to gently wash your incision with soap and water and pat the area dry with a clean towel. -No re-using wash cloths or towels; get a fresh one to clean your incision. -Do not soak in the bathtub, go swimming or use a hot tub (Jacuzzi), or perform activities where your incision is submerged in water or exposed to any fluids or substances until instructed by your doctor. -If your have the sticky strips (steri-strips) over the incision, it is OK to shower with them. Do not remove them. Let them fall off on their own. If you have a question, call your doctor s office. Go to the follow-up appointment with your doctor. [facility] this [facility] note Note Date & Type Note Facility Evaluation note No assessment information [facility] Work Phone: Evaluation note Note Date & Type Note Facility Evaluation note Diagnosis Preop examination- Primary Unspecified pre-operative examination Mild intermittent asthma without complication Preop examination Unspecified pre-operative examination Mild intermittent asthma without complication documented in this encounter [facility] Instructions Note Date & Type Note Facility Instructions Not on filedocumented in this en counter [facility] Chief Complaint and Reason for Visit Chief Complaint CHEST PAIN Advance Directives No Advanced Directives Records Found Advance Directive Response Recorded Date/ Time Advance Directives No March 11 5:40pm Latest Code Status on File Code Status Date Activated Date Inactivated Comments Full Code 11/26/2022 7:45 PM 11/28/2022 9:41 PM Code Status History Code Status Date Activated Date Inactivated Comments Full Code 01/26/2021 6:23 AM 01/28/2021 4:48 PM Full Code 01/07/2021 10:41 AM 01/07/2021 1:21 PM Full Code 12/30/2020 5:28 PM 12/30/2020 7:54 PM Full Code 10/08/2020 10:16 AM 10/09/2020 4:15 PM Summary Purpose Family History No Family History Records FoundNo Family History Records FoundNo Family History Records FoundNo Family History Records FoundNo Family History Records Found Additional Source Comments Care Teams (unrecognized sec tion and content) Team Status: Inactive Member Role Status Dates Nasreen Muller MD Primary Care Provider Active Arslan Mckee DO Emergency Provider Active Team Status: Active Member Role Status Dates Nasreen Muller MD Primary Care Provider Active [employer] Relationship Specialty Start Date End Date Nasreen Muller MD [address] [place] [address] PCP - General 01/05/17 [employer] Relationship Specialty Start Date End Date Nasreen Muller MD [address] [place] [address] PCP - General 01/05/17 Goals (unrecognized section and content) Goals may be documented in a n alternate sectionNot on filedocumented as of this encounterNot on filedocumented as of this encounter INFORMATION SOURCE (unrecogn ized section and content) DATE CREATED AUTHOR 09/22/2022 [facility] DATE CREATED AUTHOR AUTHOR'S ORGANIZ ATION 12/03/2022 [facility] DATE CREATED AUTHOR AUTHOR'S ORGANIZ ATION 09/15/2023 [facility] DATE CREATED AUTHOR AUTHOR'S ORGANIZ ATION 09/15/2023 [facility] DATE CREATED AUTHOR AUTHOR'S ORGANIZ ATION 08/10/2024 [facility] FOR RECORDS PERTAINING TO PATIENTS WHO ARE OR HAVE BEEN ENROLLED IN A CHEMICAL DEPENDENCY/SUBSTANCEABUSE PROGRAM, SOME INFORMATION MAY BE OMITTED. This clinical summary was aggregated from multiple sources. Caution should be exercised in using it in the provision of clinical care. This summary normalizes information from multiple sources, and as a consequence, information in this document may materially change the coding, format and clinical context of patient data. In addition, data may be omitted in some cases. CLINICAL DECISIONS SHOULD BE BASED ON THE PRIMARY CLINICAL RECORDS. [facility] [employer] [facility]. provides no warranty or guarantee of the accuracy or completeness of information in this document.
[2024-09-02 17:14] LABS: Influenza Virus A Antigen Negative; Influenza Virus B Antigen Negative; Internal Control Within Normal Limits; SARS-CoV-2 Ag NEGATIVE (NEGATIVE)
== END 2024-09-02 17:58 | disposition home or self-care (01) ==
PROVIDERS: Physician Assistant; Emergency Provider Emergency Medicine; PCP Family Medicine
DX: R11.10 Vomiting, unspecified (principal); R19.7 Diarrhea, unspecified; F17.200 Nicotine dependence, unspecified, uncomplicated; R05.9 Cough, unspecified
CPT/HCPCS: 71046; 87804; 87811; 99284; Q0162